=== PATIENT | male | born 1975 | race African-American/Black ===

== ENCOUNTER → 2018-06-30 | Outpatient (CLI) | payer OTHER ==
[2018-06-30 08:57] LABS: INR 0.86; PROTHROMBIN TIME 12.5 seconds (11.9-14.5)
[2018-06-30 08:58] LABS: PARTIAL THROMBOPLASTIN TIME 31.9 seconds (23.8-35.5)
[2018-06-30 09:03] LABS: BLOOD UREA NITROGEN 8 mg/dL (7-26); BUN/CREATININE RATIO 7 (6-25); CREATININE, SERUM 1.09 mg/dL (0.72-1.25); EST GLOMERULAR FILTRATION RATE > 60 ML/MIN (60-)
--- NOTE | 2018-06-30 10:05 | Diagnostic Imaging Report ---
PROCEDURE: A single AP view of the chest. COMPARISON: None. INDICATIONS: PICC LINE PLACEMENT FINDINGS: See impression. IMPRESSION: 1. right-sided PICC line with distal tip projecting in the mid SVC. 2. Lungs are well-inflated. No consolidation or effusion. 3. Mild prominence of the cardiac silhouette, which is partly due to AP projection. Karan Ornelas M.D. Dictated by: Karan Ornelas M.D. on 06/30/2018 at 10:15 Electronically approved by: Karan Ornelas M.D. on 06/30/2018 at 10:15
== END ==
LOC: DX 08:11
PROVIDERS: ATTEND Internal Medicine Infectious Disease
DX: M86.071 Acute hematogenous osteomyelitis, right ankle and foot (principal)
CPT/HCPCS: 36415; 36569; 71045; 82565; 84520; 85049; 85610; 85730